=== PATIENT | male | born 1940 | race Caucasian/White ===

== ENCOUNTER 2021-01-23 10:40 | Inpatient (IN) | payer MEDICARE ==
[~2021-01-23] VITALS: Ht 167.6 cm; Wt 51.9 kg
[2021-01-23] MEDS ORDERED: ALBUTEROL2.5 MG/3 M INH (23:17)
[2021-01-23] MEDS ORDERED: ALENDRONATE SOD70 MG PO (23:18)
[2021-01-23] MEDS ORDERED: ELIQUIS 5 MG TAB5 MG PO (23:19)
[2021-01-23] MEDS ORDERED: ALPRAZOLAM0.5 MG PO (23:19)
[2021-01-23] MEDS ORDERED: BUDESONIDE0.5 MG/2 M INH (23:20)
[2021-01-23] MEDS ORDERED: ATORVASTATIN CA20 MG PO (23:20)
[2021-01-23] MEDS ORDERED: DONEPEZIL HCL10 MG PO (23:21)
[2021-01-23] MEDS ORDERED: LACTULOSE10 GM/151 PO (23:22)
[2021-01-23] MEDS ORDERED: EUTHYROX75 MCG PO (23:22)
[2021-01-23] MEDS ORDERED: LINZESS145 MCG PO (23:24)
[2021-01-23] MEDS ORDERED: LISINOPRIL-HCT1 EACH PO (23:24)
[2021-01-23] MEDS ORDERED: SERTRALINE HCL100 MG PO (23:25)
[2021-01-23] MEDS ORDERED: CARAFATE 1 GM TA1 GM PO ×2 (23:26→23:27)
[2021-01-23] MEDS ORDERED: TRAZODONE HCL100 MG PO (23:27)
[2021-01-23] MEDS ORDERED: TERAZOSIN HCL10 MG PO (23:27)
[2021-01-24 05:44] LABS: RED BLOOD COUNT 3.22 M/UL (4.20-5.50); WHITE BLOOD COUNT 6.5 K/UL (4.5-11.0)
[2021-01-24] MEDS ORDERED: LINZESS145 MCG PO (10:20)
[2021-01-25 08:02] LABS: HEMOGLOBIN 11.3 gm/dl (14.0-17.5); WHITE BLOOD COUNT 5.7 K/UL (4.5-11.0)
[2021-01-25 08:04] LABS: RED BLOOD COUNT 3.76 M/UL (4.20-5.50)
[2021-01-26 07:12] LABS: BUN/CREATININE RATIO 52 (0-10)
[2021-01-26 09:13] LABS: CREATININE, URINE 55.3 mg/dL (Not Estab.)
[2021-01-27 07:31] LABS: BUN/CREATININE RATIO 36 (0-10)
[2021-01-28 08:02] LABS: BUN/CREATININE RATIO 29 (0-10)
[2021-01-29 09:49] LABS: BUN/CREATININE RATIO 25 (0-10)
[2021-01-30 09:08] LABS: BUN/CREATININE RATIO 29 (0-10)
[2021-01-31 06:39] LABS: BUN/CREATININE RATIO 31 (0-10)
[2021-02-01] MEDS ORDERED: ALPRAZOLAM0.5 MG PO (09:51)
[2021-02-01] MEDS ORDERED: ACETAMINOPHEN325 MG PO (10:54)
== END 2021-02-01 17:39 | DRG 682 ==
LOC: MED SURG 4 20:30 → CDU 20:30 → MED SURG 4 21:07
PROVIDERS: Internal Medicine; Internal Medicine Nephrology; ADMIT Internal Medicine
DX: N17.9 Acute kidney failure, unspecified (principal); E43 Unspecified severe protein-calorie malnutrition; E87.0 Hyperosmolality and hypernatremia; E87.2 Acidosis; Z68.1 Body mass index [BMI] 19.9 or less, adult; I95.1 Orthostatic hypotension; R29.6 Repeated falls; F03.90 Unspecified dementia, unspecified severity, without behavioral disturbance, psychotic disturbance, mood disturbance, and anxiety; R94.31 Abnormal electrocardiogram [ECG] [EKG]; G89.29 Other chronic pain; R62.7 Adult failure to thrive; F41.9 Anxiety disorder, unspecified; I48.0 Paroxysmal atrial fibrillation; E86.1 Hypovolemia; E86.0 Dehydration; M81.0 Age-related osteoporosis without current pathological fracture; E03.9 Hypothyroidism, unspecified; G31.84 Mild cognitive impairment of uncertain or unknown etiology; T46.4X5A Adverse effect of angiotensin-converting-enzyme inhibitors, initial encounter; T50.2X5A Adverse effect of carbonic-anhydrase inhibitors, benzothiadiazides and other diuretics, initial encounter; T44.6X5A Adverse effect of alpha-adrenoreceptor antagonists, initial encounter; E87.6 Hypokalemia; Z79.01 Long term (current) use of anticoagulants; Z86.73 Personal history of transient ischemic attack (TIA), and cerebral infarction without residual deficits; Z87.891 Personal history of nicotine dependence
CPT/HCPCS: 36415; 80048; 80053; 80069; 81001; 82043; 82550; 82553; 82570; 82803; 83735; 84156; 84300; 84484; 85025; 89050; 93005; 94640; 94760; 97116; 97116-GP-CQ; 97162; J1644; J3480; J7030; J7120